=== PATIENT | female | born 1945 | race Caucasian/White ===

== ENCOUNTER 2023-12-02 15:21 | Outpatient (REF) | payer MEDICARE, SELFPAY ==
[2023-12-02 18:25] LABS: Anion Gap 10 (12-20); Blood Urea Nitrogen 14 mg/dL (9-16); Calcium 8.8 mg/dL (8.4-10.2); Carbon Dioxide 26 mmol/L (22-29); Chloride 105 mmol/L (96-108); Estimated Glomerular Filt Rate > 60; Glucose Random 83 mg/dL (60-115); Potassium 4.2 mmol/L (3.3-5.1); Sodium 137 mmol/L (135-145)
[2023-12-02 18:38] LABS: Osmolality, Serum 288 mosm/kg (281-305)
[2023-12-02 18:52] LABS: Osmolality Urine 186 mosm/kg (373-1093)
[2023-12-02 19:10] LABS: Creatinine Urine 25.39 mg/dL; Potassium Urine Random 16.5 mmol/L
== END 2023-12-02 15:22 | disposition home or self-care (01) ==
LOC: HO.HKASLDS 15:21
PROVIDERS: PCP Family Medicine; Referring Provider Family Medicine; Visit Provider Internal Medicine Hypertension Specialist
DX: E87.5 Hyperkalemia (principal); N18.9 Chronic kidney disease, unspecified; N05.9 Unspecified nephritic syndrome with unspecified morphologic changes
CPT/HCPCS: 36415; 80048; 82088; 82436; 82570; 83930; 83935; 84133; 84300; 99202

== ENCOUNTER 2023-12-02 15:21 | Outpatient (AMB) | payer MEDICARE, SELFPAY ==
--- NOTE | 2023-12-02 15:22 | HO.NEPHOV ---
HPI HPI Comments History of Present Illness Details 78 yr old woman with HTN m being treated with AMlodipine was found to have mild hyperkalemia with a K of 5.4 and repeat was 5.3 Renal function is normal with a creatinine of 0.8 No acidosis No thrombocytopenia or leukocytosis. h/o mild consitpation h/o urinary incontinence and uses briefs PFSH Family History (Updated 12/02/23 @ 15:26 by Marcia Ordonez) Mother Cancer of colon Sister Diabetes mellitus Social History (Updated 12/02/23 @ 15:26 by Marcia Ordonez) Comment: seldom Patient Tobacco Use Status: Former Tobacco user Vital Signs 12/02/23 15:23 Height 5 ft 1 in Weight 135 lb BMI 25.5 BP 142/72 H Blood Pressure Location Lt brachial Position Sitting Pulse 69 Pulse Source Pulse Oximeter Pulse Oximetry (%) 98 Oxygen Delivery Method Room Air Physical Exam Vital Signs: Last Vital Signs Pulse 69 12/02/23 15:23 BP 142/72 H 12/02/23 15:23 Pulse Ox 98 12/02/23 15:23 Oxygen Delivery Method Room Air 12/02/23 15:23 BMI result Body Mass Index 25.5 Const General: comfortable Nutritional Appearance: well nourished Orientation/consciousness: patient oriented x3 HEENT Head: No normal to inspection Mouth: moist mucous membranes Neck Neck: Yes supple and Yes no JVD Resp Auscultation: clear to auscultation bilaterally, no rales and rub present Cardio Jugular venous distension: no JVD Palpation: no palpable S3 and no palpable S4 Heart sounds: no rubs GI Palpation (GI): Soft to palpation and nontender Percussion: No Fluid wave present General: Yes no CVA tenderness Back/Spine/Pelvis Back: no CVA tenderness Skin General skin exam: no rashes or lesions noted Neuro General: patient oriented x3 Extrem General: Yes no pedal edema and No clubbing Assessment & Plan Assessment & Plan (1) Hyperkalemia: Code(s): E87.5 - Hyperkalemia Plan 78 yr old woman with mild hyperkalemia with normal renal function Based on h/o and clinical findings, ddx includes pseudohyperkalemia . r/o hypoaldosteronism Plan Check potassium without tourniquet IF elevated, will check plasma potassium Avoid prolonged storage of sample prior to measurement For now, stay on low K diet- avoid ornages/bananas/nuts Avoid constipation Ordered urine for Na/K/Osm and serum osm Orders: Orders Aldosterone Today E87.5 - Hyperkalemia Basic Metabolic Panel Today E87.5 - Hyperkalemia Osmolality, Serum Today E87.5 - Hyperkalemia Chloride Urine Random Today E87.5 - Hyperkalemia Renin Today E87.5 - Hyperkalemia Osmolality Urine Today E87.5 - Hyperkalemia Sodium Urine Random Today E87.5 - Hyperkalemia, N18.9 - Chronic kidney disease, unspecified Creatinine Urine Today E87.5 - Hyperkalemia, N05.9 - Unspecified nephritic syndrome with unspecified morphologic changes Potassium Urine Random Today E87.5 - Hyperkalemia Coding Level of Care Code New Pt Level 4 (77221) Diagnoses Hyperkalemia E87.5 Results Reviewed Results Reviewed: K 5.3 Nephrology Results: No Data to Display
[2023-12-02 15:23] VITALS: BP 142/72; PULSE 69; O2SAT 98; BMI 25.5
== END 2023-12-02 15:52 | disposition home or self-care (01) ==
PROVIDERS: PCP Family Medicine; Referring Provider Family Medicine; Visit Provider Internal Medicine Hypertension Specialist
DX: E87.5 Hyperkalemia (principal)
CPT/HCPCS: 99204

== ENCOUNTER → 2024-01-13 13:12 | Outpatient (BNVA) | payer MEDICARE, SELFPAY | PROVIDERS: PCP Family Medicine; Visit Provider Internal Medicine Hypertension Specialist | DX: E87.5 Hyperkalemia (principal) | CPT/HCPCS: 99212 ==